=== PATIENT | male | born 1935 | race African-American/Black ===

== ENCOUNTER → 2018-03-14 | Outpatient (CLI) | payer MEDICARE ==
[~2018-03-14] MED LIST: IOPAMIDOL 370 MG/ML 200 ML INFUS..BTL INJ ONE; SODIUM CHLORIDE 0.9% 250ML 250 ML ONE; SODIUM CHLORIDE 0.9% 50ML 50 ML ONE
[2018-03-14 10:27] LABS: BLOOD UREA NITROGEN 16 mg/dL (7-26); BUN/CREATININE RATIO 13 (6-25); CREATININE, SERUM 1.28 mg/dL (0.72-1.25); EST GLOMERULAR FILTRATION RATE > 60 ML/MIN (60-)
--- NOTE | 2018-03-14 13:10 | Diagnostic Imaging Report ---
EXAM: CT Abdomen and Pelvis WITHOUT and WITH contrast INDICATION: \[id number] \S\[id number] \S\LOWER ABDOMEN PAIN / URINARY TRACT COMPARISON: None. TECHNIQUE: Abdomen and pelvis were scanned utilizing a multidetector helical scanner from the lung base to the pubic symphysis before and after administration of IV contrast. Coronal and sagittal reformations were obtained. Hematuria (CT Urogram) protocol was performed. Scan was performed pre- in supine position and nephrogenic/excretory phase with a 10 minute split bolus in prone position. IV CONTRAST: 100 mL of Isovue-370 ORAL CONTRAST: Water COMPLICATIONS: None RADIATION DOSE: Total DLP: ... mGy*cm Estimated effective dose: (DLP x 0.015 x size factor) mSv CTDIvol has been reviewed. It is below the limits set by the Radiation Protocol Committee (RPC). FINDINGS: LINES and TUBES: None. LOWER THORAX: Dependent atelectasis. Bilateral lower lobe linear scarring. HEPATOBILIARY: 1.1 cm left hepatic lobe and 1.4 cm right hepatic lobe hypodensities are probably cysts. Another right hepatic lobe segment 7 hypodensity (series 6, image 41) is too small to characterize. No biliary ductal dilation. GALLBLADDER: No radio-opaque stones or sludge. No wall thickening. SPLEEN: No splenomegaly. PANCREAS: No focal masses or ductal dilatation. ADRENALS: No adrenal nodules KIDNEYS/URETERS: Kidneys: Normal appearance bilaterally. No hydronephrosis or perinephric stranding. Cyst: Multiple bilateral renal cysts, measuring up to 4.3 cm on the right side and 4.2 cm, left. Mass: None. Stones: None. Upper collecting systems: No irregularities or filling defects. Ureters: Fully opacified and normal in appearance. Bladder: No mass or filling defects. GI TRACT: No abnormal distention, wall thickening, or evidence of bowel obstruction. There are diverticula within the colon without evidence of diverticulitis. Appendix is normal. PELVIC ORGANS/BLADDER: Enlarged prostate gland, measuring 7 cm in transverse diameter. Bladder is unremarkable. LYMPH NODES: No lymphadenopathy. VESSELS: There is mild atherosclerotic disease in the aorta and major arterial branches. PERITONEUM / RETROPERITONEUM: No free air or fluid. BONES: Unremarkable. SOFT TISSUES: Unremarkable. IMPRESSION: 1. No nephrolithiasis or evidence of obstructive urolithiasis. 2. No filling defects within opacified collecting system/ureters. 3. Enlarged prostate gland. 4. Multiple bilateral renal cysts. 5. There are also hepatic hypodensities, also probably cysts. 6. Colonic diverticulosis without evidence of diverticulitis. Signed by: Dr. Mamadou Winter MD on 03/14/2018 1:07 PM
== END ==
LOC: CT 09:38
PROVIDERS: ATTEND Urology
DX: R10.30 Lower abdominal pain, unspecified (principal); N39.0 Urinary tract infection, site not specified
CPT/HCPCS: 36415; 74178; 82565; 84520; J7050; Q9967